=== PATIENT | female | born 1975 | race Caucasian/White ===

== ENCOUNTER 2017-01-29 13:53 | Emergency (ER) | payer SELFPAY ==
[~2017-01-29] VITALS: Ht 170.2 cm; Wt 70.1 kg
[~2017-01-29 13:53] MED LIST: IBUP600 PO; OXYC1SOL5 PO; PROZ20CA11 PO; PROZ40CA PO; ZYPR15TA PO
[2017-01-29 14:00] VITALS: BP 116/80; PULSE 86; RESP 18; TEMP 98.3; O2SAT 97
[2017-01-29] MEDS ORDERED: ZYPR10TA PO (15:48)
[2017-01-29] MEDS ORDERED: FLUO-1 PO (15:48)
[2017-01-29] MEDS ORDERED: SODIUM CHLOR 0.9% 1000 ML INJ 1,000 ML IV ONE (15:59)
[2017-01-29] MEDS ORDERED: ONDANSETRON HCL 4 MG/2 ML VIAL IVP ONE (16:00)
[2017-01-29] MEDS ORDERED: MORPHINE SULFATE 8 MG/ML INJ IV PUSH ONE ×2 (16:00→18:00)
[2017-01-29 16:02] LABS: BLOOD, URINE LARGE (NEG); GLUCOSE,URINE NEG (NEG); KETONE, URINE NEG (NEG); NITRITE,URINE NEG (NEG)
--- NOTE | 2017-01-29 16:07 | PD ---
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 The patient states she developed abdominal cramping 3-4 days ago after taking Zyprexa, then started having some heavier vaginal bleeding, is now passing large blood clots. The patient is unsure if she passed products of conception last night. The patient complains of pelvic pain and cramping that radiates to the back and to the lower extremities bilaterally. She does note abdominal pain and cramping with nausea, but denies any vomiting. She is A positive blood type per her report. She denies any fever, chills, sweats, dysuria, frequency, or urgency. PFSH Past Medical History Anxiety: Yes Depression: Yes Diminished Hearing: No Immunizations Current: Yes Influenza Vaccination: No ?: Unknown LMP: 2 MONTHS Past Surgical History Abdominal Surgery: Yes () Section: Yes (x 1) Gynecologic Surgery: Yes (C SECTION X 1) Social History Alcohol Use: Yes Tobacco Use: Yes (current smoker, reports attempting to quite, using vape) Substance Use: No Allergies-Medications (Allergen,Severity, Reaction): Coded Allergies: Penicillin (Verified Allergy, Severe, CHILDHOOD ALLERGY, 01/29/17) *MDRO Multi-Drug Resistant Organism (Verified Adverse Reaction, Unknown, ) MRSA wound 06/18/15. Reported Meds & Prescriptions Reported Meds & Active Scripts Active Reported Zyprexa (Olanzapine) 10 Mg Tab 0 PO DAILY Prozac (Fluoxetine HCl) 10 Mg Cap 0 PO DAILY Review of Systems Except as stated in HPI: all other systems reviewed are Neg General / Constitutional: No: Fever Cardiovascular: No: Chest Pain or Discomfort Respiratory: No: Shortness of Breath Gastrointestinal: Positive: Nausea, Abdominal Pain, No: Vomiting, Diarrhea Genitourinary: Positive: Dysuria, Pelvic Pain, Vaginal Bleeding Musculoskeletal: Positive: Pain (bilateral leg pain radiating from the low back ) Physical Exam Narrative GENERAL: Awake, alert, pleasant 41-year-old female who appears her stated age and is in no acute respiratory distress. SKIN: Focused skin assessment warm/dry. HEAD: Atraumatic. Normocephalic. EYES: No injection or drainage. ENT: No nasal bleeding or discharge. Mucous membranes pink and moist. NECK: Trachea midline. No JVD. CARDIOVASCULAR: Regular rate and rhythm. No murmur appreciated. RESPIRATORY: No accessory muscle use. Clear to auscultation. Breath sounds equal bilaterally. GASTROINTESTINAL: Abdomen soft, non-tender, nondistended. No rebound tenderness. Back: No CVA tenderness. Pelvic: Exam was performed in the presence of a female nurse. External examination reveals no rashes or lesions. Speculum examination reveals blood at the introitus. There is blood in the vaginal vault. Cervix appears open proximal 1.5 cm x 1 cm. No visible products of conception. MUSCULOSKELETAL: No obvious deformities. No clubbing. No cyanosis. No edema. NEUROLOGICAL: Awake and alert. No obvious cranial nerve deficits. Motor grossly within normal limits. Normal speech. PSYCHIATRIC: Appropriate mood and affect; insight and judgment normal. Data Data Last Documented VS Vital Signs Date Time Temp Pulse Resp B/P Pulse Ox O2 Delivery O2 Flow Rate FiO2 01/29/17 18:21 16 01/29/17 16:12 98.1 77 122/74 100 Room Air Orders Urinalysis - C+S If Indicated (01/29/17 15:43) Ed Urine Pregnancytest Poc (01/29/17 15:43) Beta Hcg (Quant/Titer) (01/29/17 15:59) Complete Blood Count With Diff (01/29/17 15:59) Basic Metabolic Panel (Bmp) (01/29/17 15:59) Us Pelvis (Ques Pr/Ect)W Trans (01/29/17 ) Sodium Chlor 0.9% 1000 Ml Inj (Ns 1000 M (01/29/17 15:59) Ondansetron Inj (Zofran Inj) (01/29/17 16:00) Morphine Inj (Morphine Inj) (01/29/17 16:00) Morphine Inj (Morphine Inj) (01/29/17 18:00) Labs Laboratory Tests Test 01/29/17 01/29/17 15:30 16:00 Urine Collection Type VOIDED Urine Color LIGHT-RED Urine Turbidity SLIGHT Urine pH 6.0 Urine Specific [place] 1.016 Urine Protein 30 mg/dL Urine Glucose (UA) NEG mg/dL Urine Ketones NEG mg/dL Urine Occult Blood LARGE Urine Nitrite NEG Urine Bilirubin NEG Urine Leukocyte Esterase SMALL Urine RBC INNUM /hpf Urine WBC 3-5 /hpf Urine Squamous Epithelial 0-5 /hpf Cells Urine Bacteria RARE /hpf Microscopic Urinalysis Comment CULT NOT INDICATED White Blood Count 8.7 TH/MM3 Red Blood Count 3.87 MIL/MM3 Hemoglobin 11.6 GM/DL Hematocrit 34.8 % Mean Corpuscular Volume 89.9 FL Mean Corpuscular Hemoglobin 30.1 PG Mean Corpuscular Hemoglobin 33.5 % Concent Red Cell Distribution Width 13.6 % Platelet Count 295 TH/MM3 Mean Platelet Volume 8.1 FL Neutrophils (%) (Auto) 61.5 % Lymphocytes (%) (Auto) 29.8 % Monocytes (%) (Auto) 6.0 % Eosinophils (%) (Auto) 2.3 % Basophils (%) (Auto) 0.4 % Neutrophils # (Auto) 5.4 TH/MM3 Lymphocytes # (Auto) 2.6 TH/MM3 Monocytes # (Auto) 0.5 TH/MM3 Eosinophils # (Auto) 0.2 TH/MM3 Basophils # (Auto) 0.0 TH/MM3 CBC Comment DIFF FINAL Differential Comment Sodium Level 141 MEQ/L Potassium Level 3.9 MEQ/L Chloride Level 108 MEQ/L Carbon Dioxide Level 25.5 MEQ/L Anion Gap 8 MEQ/L Blood Urea Nitrogen 7 MG/DL Creatinine 0.61 MG/DL Estimat Glomerular Filtration 109 ML/MIN Rate Random Glucose 99 MG/DL Calcium Level 8.7 MG/DL Human Chorionic Gonadotropin, 948 MIU/ML Quant MDM Medical Decision Making Medical Screen Exam Complete: Yes Emergency Medical Condition: Yes Medical Record Reviewed: Yes Interpretation(s) Last Impressions Pelvis Ultrasound 01/29/17 0000 Signed Impressions: Service Date/Time: Sunday, January 29, 2017 16:36 - CONCLUSION: Nonspecific thickening of the endometrial stripe without evidence for intrauterine . Florentin Mayen MD Laboratory Tests Test 01/29/17 01/29/17 15:30 16:00 Urine Collection Type VOIDED Urine Color LIGHT-RED Urine Turbidity SLIGHT Urine pH 6.0 Urine Specific [place] 1.016 Urine Protein 30 mg/dL Urine Glucose (UA) NEG mg/dL Urine Ketones NEG mg/dL Urine Occult Blood LARGE Urine Nitrite NEG Urine Bilirubin NEG Urine Leukocyte Esterase SMALL Urine RBC INNUM /hpf Urine WBC 3-5 /hpf Urine Squamous Epithelial 0-5 /hpf Cells Urine Bacteria RARE /hpf Microscopic Urinalysis Comment CULT NOT INDICATED White Blood Count 8.7 TH/MM3 Red Blood Count 3.87 MIL/MM3 Hemoglobin 11.6 GM/DL Hematocrit 34.8 % Mean Corpuscular Volume 89.9 FL Mean Corpuscular Hemoglobin 30.1 PG Mean Corpuscular Hemoglobin 33.5 % Concent Red Cell Distribution Width 13.6 % Platelet Count 295 TH/MM3 Mean Platelet Volume 8.1 FL Neutrophils (%) (Auto) 61.5 % Lymphocytes (%) (Auto) 29.8 % Monocytes (%) (Auto) 6.0 % Eosinophils (%) (Auto) 2.3 % Basophils (%) (Auto) 0.4 % Neutrophils # (Auto) 5.4 TH/MM3 Lymphocytes # (Auto) 2.6 TH/MM3 Monocytes # (Auto) 0.5 TH/MM3 Eosinophils # (Auto) 0.2 TH/MM3 Basophils # (Auto) 0.0 TH/MM3 CBC Comment DIFF FINAL Differential Comment Sodium Level 141 MEQ/L Potassium Level 3.9 MEQ/L Chloride Level 108 MEQ/L Carbon Dioxide Level 25.5 MEQ/L Anion Gap 8 MEQ/L Blood Urea Nitrogen 7 MG/DL Creatinine 0.61 MG/DL Estimat Glomerular Filtration 109 ML/MIN Rate Random Glucose 99 MG/DL Calcium Level 8.7 MG/DL Human Chorionic Gonadotropin, 948 MIU/ML Quant Differential Diagnosis Differential diagnosis includes threatened AB, incomplete AB, complete AB, normal , UTI, ectopic . Narrative Course IV was established, labs are drawn and sent, and the patient was placed on cardiac telemetry monitoring and continuous pulse oximetry monitoring. Bedside UA test was positive, therefore, formal blood beta hCG level was ordered. Ultrasound was ordered to evaluate for possible ectopic /IUP/ incomplete AB. The patient was administer morphine, Zofran, and IV fluids after I discussed with the patient that morphine was a category C medication. I reviewed the EMR, she had blood work performed on March 14, 2016 which revealed she is a positive. The patient's beta ACG is just less than 1000, ultrasound reveals nonspecific thickening of the endometrial stripe without evidence for IUP. The patient either has a complete AB versus early . The patient was reevaluated at 5:42 PM, she once again had some abdominal pain and cramping after the ultrasound was performed. She was administered another dose of morphine and then the pelvic exam was performed. The pelvic examination reveals blood in the vaginal vault. Cervix is 1.5 x 1 cm, she's never had a vaginal delivery, most likely this is an open cervix and she is already passed products of conception. However, could be early , therefore, patient will need repeat beta hCG in 48-72 hours. She'll be discharged home on pain medications and will be provided a work excuse for today and tomorrow. Patient was told at bedside that this could be a complete AB and her bleeding should resolve versus early . Diagnosis Primary Impression: Threatened Patient Instructions: General Instructions Additional Instructions: Repeat beta hCG in 48-72 hours. 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 Pain medications as directed. Work excuse for 2 days. Return if symptoms worsen or progress. Med/Other Pt SpecificInfo: Prescription(s) given Scripts Hydrocodone-Acetaminophen ([place])5-325 mg Tab1 Tab PO Q6H PRN (PAIN) #12 TAB Ref 0 Prov:Bridger Atkinson MD 01/29/17 Disposition: DISCHARGE HOME Condition: Stable Bridger Atkinson MD Jan 29, 2017 16:06
[2017-01-29 16:12] VITALS: BP 122/74; PULSE 77; RESP 18; TEMP 98.1; O2SAT 100
[2017-01-29 16:29] LABS: AUTOMATED NEUTROPHIL # 5.4 TH/MM3 (1.8-7.7); BASOPHIL % 0.4 % (0.0-2.0); EOSINOPHIL # 0.2 TH/MM3 (0-0.4); EOSINOPHIL % 2.3 % (0.0-4.0); HEMATOCRIT 34.8 % (35.0-46.0); HEMO FLAGS DIFF FINAL; LYMPH % 29.8 % (9.0-44.0); LYMPHOCYTE # 2.6 TH/MM3 (1.0-4.8); MEAN CELL VOLUME 89.9 FL (80.0-100.0); MEAN CORPUSCULAR HEMOGLOBIN 30.1 PG (27.0-34.0); MEAN CORPUSCULAR HGB CONC 33.5 % (32.0-36.0); NEUT % 61.5 % (16.0-70.0); PLATELET COUNT 295 TH/MM3 (150-450); RED BLOOD COUNT 3.87 MIL/MM3 (4.00-5.30); RED CELL DISTRIBUTION WIDTH 13.6 % (11.6-17.2); WHITE BLOOD COUNT 8.7 TH/MM3 (4.0-11.0)
[2017-01-29 16:31] LABS: METHOD OF COLLECTION VOIDED; URINE COLOR LIGHT-RED (YELLW/STRAW)
[2017-01-29 16:32] LABS: POTASSIUM 3.9 MEQ/L (3.5-5.1)
[2017-01-29 16:32] LABS: RBC, URINE INNUM /hpf (0-3)
[2017-01-29 16:33] LABS: BACTERIA, URINE RARE /hpf; COMMENT (UR) CULT NOT INDICATED; CULTURE IF INDICATED CULT NOT INDICATED; SQUAMOUS EPITHELIAL CELL URINE 0-5 /hpf (0-5)
[2017-01-29 16:35] LABS: BICARBONATE 25.5 MEQ/L (21.0-32.0)
--- NOTE | 2017-01-29 17:34 | RADRPT ---
EXAM DATE/TIME: 01/29/2017 16:36 [facility] COMPARISON: No previous studies available for comparison. INDICATIONS : Vaginal bleeding. LAB(S): Beta-hC MEDICAL HISTORY : Depression. Anxiety. MRSA. SURGICAL HISTORY : section. ENCOUNTER: Initial ACUITY: 4-6 days PAIN SCORE: 4/10 LOCATION: Bilateral pelvis MEASUREMENTS: UTERUS: 11.1 x 7.2 x 5.7 cm ENDOMETRIAL STRIPE: 19 mm RIGHT OVARY: 2.7 x 1.4 x 1.8 cm LEFT OVARY: 3.2 x 1.8 x 1.8 cm FREE FLUID: No FINDINGS: There is no evidence for intrauterine and there is thickening of the endometrial stripe non specific. Nabothian cysts are present. There is no adnexal mass or free fluid. CONCLUSION: Nonspecific thickening of the endometrial stripe without evidence for intrauterine . Florentin Mayen MD on January 29, 2017 at 17:31 Board Certified Radiologist. This report was verified electronically.
[2017-01-29 18:21] VITALS: RESP 16
[2017-01-29] MEDS ORDERED: NORC5TAB PO (18:29)
== END 2017-01-29 18:45 | disposition home or self-care (01) ==
LOC: PHED 13:53
DX: O20.0 Threatened abortion (principal); R11.0 Nausea; Z72.0 Tobacco use; Z86.59 Personal history of other mental and behavioral disorders; Z3A.01 Less than 8 weeks gestation of pregnancy
CPT/HCPCS: 76700; 76817; 80048; 81001; 84702; 84703; 85025; 96361; 96374; 96375; 96376; 99285; J2270; J2405; J7030

== ENCOUNTER 2017-02-08 12:30 | Emergency (ER) | payer SELFPAY ==
[~2017-02-08] VITALS: Ht 170.2 cm; Wt 68.0 kg
[~2017-02-08 12:30] MED LIST changes: +FLUO-1 PO; -IBUP600 PO; +NORC5TAB PO; -OXYC1SOL5 PO; -PROZ20CA11 PO; -PROZ40CA PO; +ZYPR10TA PO; -ZYPR15TA PO
[2017-02-08 12:37] VITALS: BP 127/72; PULSE 82; RESP 16; TEMP 98; O2SAT 99
--- NOTE | 2017-02-08 12:57 | PD ---
HPI Chief Complaint: Related Problem Time Seen by Provider: 12:57 Travel History International Travel<30 days: No Contact w/Intl Traveler<30days: No Traveled to known affect area: No History of Present Illness HPI 41-year-old female came to the emergency room with history of miscarriage. Patient was in the emergency room 3 days ago where an ultrasound and blood test was done. The ultrasound did not show any intrauterine gestational sac. Beta- hCG was 900s. She was having some spotting at that time. Patient was asked to come back in 72 hours to get a repeat beta-hCG. She is telling me that she is having yellowish to greenish spotting at this point. She still has some abdominal cramps. History of fever or chills. Vital signs were stable. Patient is A2. PFSH Past Medical History Narrative Medical List of her past medical, surgical, social and family history is reviewed from the nursing note. Anxiety: Yes Depression: Yes Diminished Hearing: No Immunizations Current: Yes ?: Unknown LMP: 2 [facility]NHS AGO Past Surgical History Abdominal Surgery: Yes () Section: Yes (x 1) Gynecologic Surgery: Yes (C SECTION X 1) Social History Alcohol Use: Yes Tobacco Use: Yes (current smoker, reports attempting to quite, using vape) Substance Use: No Allergies-Medications (Allergen,Severity, Reaction): Coded Allergies: Penicillin (Verified Allergy, Severe, CHILDHOOD ALLERGY, 02/08/17) *MDRO Multi-Drug Resistant Organism (Verified Adverse Reaction, Unknown, ) MRSA wound 06/18/15. Comments List of her allergies reviewed from the nursing note. Reported Meds & Prescriptions Reported Meds & Active Scripts Active Macrobid (Nitrofurantoin Monoh/Nitrofur Macro) 100 Mg Cap 100 Mg PO BID 10 Days [place] (Hydrocodone-Acetaminophen) 5-325 mg Tab 1 Tab PO Q6H PRN Reported Zyprexa (Olanzapine) 10 Mg Tab 0 PO DAILY Prozac (Fluoxetine HCl) 10 Mg Cap 0 PO DAILY Narrative Medication List of her home medications reviewed from the nursing note. Review of Systems Except as stated in HPI: all other systems reviewed are Neg Physical Exam Narrative GENERAL: Awake, alert, no obvious distress SKIN: Focused skin assessment warm/dry. HEAD: Atraumatic. Normocephalic. EYES: Pupils equal and round. No scleral icterus. No injection or drainage. ENT: No nasal bleeding or discharge. Mucous membranes pink and moist. NECK: Trachea midline. No JVD. CARDIOVASCULAR: Regular rate and rhythm. No murmur appreciated. RESPIRATORY: No accessory muscle use. Clear to auscultation. Breath sounds equal bilaterally. GASTROINTESTINAL: Abdomen soft, non-tender, nondistended. Hepatic and splenic margins not palpable. MUSCULOSKELETAL: No obvious deformities. No clubbing. No cyanosis. No edema. NEUROLOGICAL: Awake and alert. No obvious cranial nerve deficits. Motor grossly within normal limits. Normal speech. PSYCHIATRIC: Appropriate mood and affect; insight and judgment normal. Data Data Last Documented VS Vital Signs Date Time Temp Pulse Resp B/P Pulse Ox O2 Delivery O2 Flow Rate FiO2 02/08/17 12:37 98.0 82 16 127/72 99 Orders Beta Hcg (Quant/Titer) (02/08/17 13:07) Urinalysis - C+S If Indicated (02/08/17 13:24) Urine Culture (02/08/17 13:49) Nitrofurantoin Monohyd Macrocr (Macrobid (02/08/17 14:15) Labs Laboratory Tests Test 02/08/17 13:49 Urine Color YELLOW Urine Turbidity SLIGHT Urine pH 6.0 Urine Specific [place] 1.021 Urine Protein NEG mg/dL Urine Glucose (UA) NEG mg/dL Urine Ketones NEG mg/dL Urine Occult Blood SMALL Urine Nitrite NEG Urine Bilirubin NEG Urine Leukocyte Esterase SMALL Urine RBC 4-9 /hpf Urine WBC 9-14 /hpf Urine Squamous Epithelial 6-8 /hpf Cells Urine Amorphous Sediment FEW Urine Bacteria FEW /hpf Microscopic Urinalysis Comment CULTURE INDICATED Human Chorionic Gonadotropin, 16 MIU/ML Quant MDM Medical Decision Making Medical Screen Exam Complete: Yes Emergency Medical Condition: Yes Medical Record Reviewed: Yes Differential Diagnosis Complete , retained products of conception Narrative Course 2:23 PM awaiting for the beta-hCG. The UA is suggestive of gross UTI. I've given her dose of Macrobid. 2:33 PM beta-hCGs back in its 16 today. She has completed the . Procedures EKG Prior to Arrival: No Diagnosis Primary Impression: Complete miscarriage Additional Impression: UTI (urinary tract infection) Qualified Code: N39.0 - Urinary tract infection without hematuria, site unspecified Referrals: Primary Care Physician Additional Instructions: Please return to the ER if the condition worsens or any other new concerns. No vaginal intercourse, tampons or douching till the bleeding has completely stopped. Take the antibiotic as per the prescription direction. Drink lots of fluid. Do not lift anything heavy. Med/Other Pt SpecificInfo: Prescription(s) given Scripts Nitrofurantoin Monohydrate Macrocrystals (Macrobid)[address] Mg [id number] Mg PO BID 10 Days Ref 0 Prov:Ольга Khanna MD 02/08/17 Disposition: 01 DISCHARGE HOME Condition: Stable Ольга Khanna MD Feb 08, 2017 12:57
[2017-02-08 13:56] LABS: BLOOD, URINE SMALL (NEG); GLUCOSE,URINE NEG (NEG); KETONE, URINE NEG (NEG); NITRITE,URINE NEG (NEG)
[2017-02-08 14:02] LABS: URINE COLOR YELLOW (YELLW/STRAW)
[2017-02-08 14:04] LABS: BACTERIA, URINE FEW /hpf; COMMENT (UR) CULTURE INDICATED; CULTURE IF INDICATED CULTURE INDICATED
[2017-02-08] MEDS ORDERED: NITROFURANTOIN MONOHYD MACROCR 100 MG CAP PO ONE (14:15)
[2017-02-08 14:32] LABS: BETA HCG QUANT 16 MIU/ML (0-5)
[2017-02-08] MEDS ORDERED: MACR100C2 PO (14:35)
== END 2017-02-08 14:59 | disposition home or self-care (01) ==
LOC: PHED 12:30
DX: O03.88 Urinary tract infection following complete or unspecified spontaneous abortion (principal); N39.0 Urinary tract infection, site not specified; B96.89 Other specified bacterial agents as the cause of diseases classified elsewhere
CPT/HCPCS: 81001; 84702; 87086; 99283